=== PATIENT | male | born 1970 | race Two or more races ===

== ENCOUNTER 2022-11-08 20:52 | Emergency (ER) | payer OTHER ==
[~2022-11-08] VITALS: Ht 165.1 cm; Wt 95.3 kg
[~2022-11-08 20:52] MED LIST: CIPRO500 MG
[2022-11-08] MEDS ORDERED: HYZAAR 100-251 EACH PO (21:07)
== END 2022-11-08 23:45 | disposition home or self-care (01) ==
LOC: ER 20:52
DX: K21.00 Gastro-esophageal reflux disease with esophagitis, without bleeding (principal); K29.60 Other gastritis without bleeding; I10 Essential (primary) hypertension; Z88.6 Allergy status to analgesic agent